=== PATIENT | female | born 1990 | race African-American/Black ===

== ENCOUNTER 2016-09-02 13:01 | Emergency (ER) | payer MEDICAID ==
[2016-09-02] MEDS ORDERED: LIDOCAINE/EPI 1% MDV 20 ML ONE (13:51)
[2016-09-02] MEDS ORDERED: L.E.T. 3 ML SOLUTION TOPICAL ONE (13:51)
[2016-09-02] MEDS ORDERED: CLINDAMYCIN 600 MG/4 ML VIAL ONE (14:29)
== END 2016-09-02 15:19 | disposition home or self-care (01) ==
LOC: ER 13:01 → FASTR 15:19
DX: L03.311 Cellulitis of abdominal wall (principal); L02.211 Cutaneous abscess of abdominal wall; F17.210 Nicotine dependence, cigarettes, uncomplicated
CPT/HCPCS: 96372